=== PATIENT | male | born 1990 | race Two or more races ===

== ENCOUNTER 2024-08-18 21:14 | Emergency (ER) | payer OTHER ==
[~2024-08-18] VITALS: Ht 175.3 cm; Wt 81.6 kg
[2024-08-18] MEDS ORDERED: HYDROMORPHONE 1 MG/1 ML DISP.SYRIN IV ONE (22:15)
[2024-08-18 23:06] LABS: BASOPHILS # (AUTO) 0.1 K/UL (0.0-0.2); BASOPHILS % (AUTO) 1.3 % (0.0-2.0); CALCIUM 9.4 mg/dL (8.5-10.1); CARBON DIOXIDE 28 mmol/L (21-32); CHLORIDE 106 mmol/L (98-107); CREATININE 1.1 mg/dL (0.6-1.3); EOSINOPHILS # (AUTO) 0.1 K/uL (0.0-0.7); EOSINOPHILS % (AUTO) 1.1 % (0.0-7.0); GLUCOSE 93 mg/dL (74-106); HEMATOCRIT 43.7 % (36.7-47.1); HEMOGLOBIN 14.4 g/dL (12.5-16.3); LYMPHOCYTES # (AUTO) 4.6 K/uL (0.8-4.8); LYMPHOCYTES % (AUTO) 45.7 % (20.5-51.5); MEAN CORPUSCULAR HEMOGLOBIN 29.3 uug (23.8-33.4); MEAN CORPUSCULAR HGB CONC 33 g/dL (32.5-36.3); MEAN CORPUSCULAR VOLUME 88.9 fL (73.0-96.2); MONOCYTES # (AUTO) 0.6 K/uL (0.1-1.30); MONOCYTES % (AUTO) 6.1 % (0.0-11.0); NEUTROPHILS # (AUTO) 4.6 K/uL (1.8-8.9); NEUTROPHILS % (AUTO) 45.8 % (38.5-71.5); PLATELET COUNT (AUTO) 374 K/uL (152-348); POTASSIUM 3.6 mmol/L (3.5-5.1); RED BLOOD CELL COUNT(AUTO) 4.92 MIL/uL (4.06-5.63); RED CELL DISTRIBUTION WIDTH 12.9 % (12.1-16.2); SODIUM SERUM 143 mmol/L (136-145); UREA NITROGEN, BLOOD 12 mg/dL (7-18)
[2024-08-18 23:07] LABS: DIFFERENTIAL COMMENT 1
[2024-08-18 23:15] LABS: ALANINE AMINOTRANSFERASE 28 U/L (16-63); ALBUMIN 4.6 g/dL (3.4-5.0); ALKALINE PHOSPHATASE 87 U/L (50-136); ASPARTATE AMINOTRANSFERASE 12 U/L (15-37); BILIRUBIN,DIRECT 0.1 mg/dL (0.0-0.2); BILIRUBIN,TOTAL 0.4 mg/dL (0.2-1.0); TOTAL PROTEIN, SERUM 8.2 g/dL (6.4-8.2)
[2024-08-18] MEDS ORDERED: IV NORMAL SALINE 250 ML IV ONE (23:22)
[2024-08-18] MEDS ORDERED: IOHEXOL 350 100 ML INFUS..BTL ONE (23:22)
[2024-08-18] MEDS ORDERED: SWABABLE VALVE TRANSFER SET EA MC ONE (23:23)
[2024-08-19 03:09] VITALS: BP 125/87; TEMP 97.8; O2SAT 97
== END 2024-08-19 03:05 | disposition left against medical advice (07) ==
LOC: ER 21:14
DX: H53.8 Other visual disturbances (principal); H52.12 Myopia, left eye; H54.62 Unqualified visual loss, left eye, normal vision right eye; R94.31 Abnormal electrocardiogram [ECG] [EKG]; Z87.891 Personal history of nicotine dependence
CPT/HCPCS: 99285; 70496; 80076; 80048; 84443; 85025; 85730; 84484; 36415; 70498; 93005; 70450; Q9967; A4606; A4663